=== PATIENT | female | born 1960 | race Caucasian/White ===

== ENCOUNTER 2017-11-14 20:53 | Emergency (ER) | payer OTHER ==
--- NOTE | 2017-11-14 22:28 | EDPHY ---
H & P Time Seen by Provider: 11/14/17 22:18 HPI/ROS: CHIEF COMPLAINT: Left knee pain post intra-articular injection HISTORY OF PRESENT ILLNESS: 57-year-old female history of osteoarthritis, followed by [facility], saw her [facility] PCP today had an intra-articular injection of methylprednisolone to the left knee. This occurred at approximately 3:30 p.m.. She felt well after the injection however approximately 2 hr later noted progressive increase in pain and stiffness the point where she is unable to bear weight and unable to bend the left knee. Normal color and temperature. PRIMARY CARE PROVIDER: [facility] REVIEW OF SYSTEMS: A ten point review of systems was performed and is negative with the exception of the items mentioned in the HPI PHYSICAL EXAM (Prior to examination, patient consented to physical exam, hands were washed and my usual and customary physical exam procedures followed) 1) GENERAL: Well-developed, well-nourished, alert and oriented. Appears to be in no acute distress. 2) HEAD: Normocephalic 3) HEENT: sclera anicteric 4) LUNGS: Breathing comfortably. 5) SKIN: Normal coloration. No signs of cellulitis. 6) MUSCULOSKELETAL: Left lower extremity: Lateral knee puncture wound noted with no signs of infection. Normal color and temperature. She is tender to palpation lateral aspect of the knee with edema noted. Distal DP PT pulses present and brisk. 7) NEUROLOGIC: Full sensation distally. DIFFERENTIAL DIAGNOSIS: In no particular include but limited to traumatic hemarthrosis, septic arthritis, medication reaction Smoking Status: Never smoked Constitutional: Initial Vital Signs Temperature (C) 36.6 C 11/14/17 21:00 Heart Rate 79 11/14/17 21:00 Respiratory Rate 18 11/14/17 21:00 Blood Pressure 141/86 H 11/14/17 21:00 O2 Sat (%) 99 11/14/17 21:00 O2 Delivery Mode Room Air Allergies/Adverse Reactions: No Known Allergies Allergy (Unverified 11/14/17 21:03) Home Medications: Medication Instructions Recorded NK [No Known Home Meds] 11/14/17 MDM/Departure - MDM Imaging Results: Imaging Impressions Knee X-Ray 11/14/17 22:28 Impression: 1. Moderate tricompartmental osteoarthritis worse in the lateral patellofemoral compartment. 2. Joint effusion. 3. No evidence of fracture or destructive osseous lesions. Findings and recommendations discussed with Emergency Department physician, Silva Melendez at 23:12 hour, 11/14/2017. Final report concurs with initial preliminary interpretation. Procedures: Procedure: Splint A knee immobilizer splint was applied by ER ground source heat pump technician. After application of the splint I returned and re-examined the patient. The splint was adequately immobilizing the joint and distal to the splint the patient's circulation and sensation were intact. Patient shows no signs of compartment syndrome. Was given orthopedic precautions. Procedure: Crutches indications for crutch use discussed with patient. Patient fitted for crutches by ER staff. Observed ambulating with crutches. I think the patient has the capacity to safely use crutches. Usual and customary crutch walking precautions provided Medications Given: Discontinued Medications Hydrocodone Bitart/Acetaminophen ([facility] 5/325mg Prepack#6) 1 btl TAKEHOME EDNOW ONE Stop: 11/14/17 22:56 Last Admin: 11/14/17 23:04 Dose: 1 btl Hydrocodone Bitart/Acetaminophen ([facility] 5/325) 1 tab PO EDNOW ONE Stop: 11/14/17 23:03 Last Admin: 11/14/17 23:04 Dose: 1 tab ED Course/Re-evaluation: Re-evaluation with serial examinations. Discussed case with secondary supervising physician Dr. Nair in the ER. Doubt septic arthritis as this would be less than likely to occur with then 2-3 hours of injection. Discussed more than likely localized reaction, possibly to injection, possibly procedure, possibly to medication. Doubt compartment syndrome and presence of soft compartments and neurovascularly intact. I do not think that arthrocentesis, MRI indicated. She has been placed in knee immobilizer. Recommend she contact [facility] provider on Friday as today is Friday. In the meantime should she develop erythema, discoloration, to return to ER immediately for re-evaluation. She feels comfortable with this plan. - Depart Disposition: Home, Routine, Self-Care Clinical Impression: Pain in right knee Qualifiers: Chronicity: acute Qualified Code(s): M25.561 - Pain in right knee Condition: Good Instructions: Hydrocodone/Acetaminophen (By mouth), Knee Pain (ED) Additional Instructions: Return to the ER immediately if you experience discoloration, increased warmth, have worsening pain, numbness, tingling, or any other symptoms that concern you. If you received x-rays in the emergency department today, be advised, that ligamentous, tendon, muscular, and other non-bony injury cannot be fully ruled out. Try to keep your affected extremity elevated above the level of your chest, and keep cold packs on the affected area, for the next 48 hours. Referrals: Follow-up, with [facility] on Friday [Other] - As per Instructions
[2017-11-14] MEDS ORDERED: HYDROCOD/APAP 5/325 PREPACK#6 BTL TAKEHOME ONE (22:55)
[2017-11-14] MEDS ORDERED: HYDROCODONE/APAP 5/325 TAB PO ONE (23:02)
[2017-11-14 23:24] VITALS: BP 136/82
== END 2017-11-14 23:23 | disposition home or self-care (01) ==
DX: M25.562 Pain in left knee (principal)
CPT/HCPCS: L1830